=== PATIENT | female | born 1985 | race Caucasian/White ===

== ENCOUNTER 2016-04-05 12:51 | Emergency (ER) | payer OTHER ==
[~2016-04-05] VITALS: Ht 157.5 cm; Wt 92.7 kg
[2016-04-05 12:59] VITALS: Ht 157.5 cm; Wt 92.7 kg
[2016-04-05 14:31] LABS: HEMATOCRIT 42.3 % (37-47); MEAN CELL VOLUME 88.7 fL (80-100); MEAN CORPUSCULAR HEMOGLOBIN 31.4 pg (25-34); MEAN CORPUSCULAR HGB CONC 35.5 g/dl (32-36); MEAN PLATELET VOLUME 9.5 fL (7.4-10.4); PLATELET COUNT 289 K/uL (130-400); RED BLOOD COUNT 4.77 M/uL (4.2-5.4); WHITE BLOOD COUNT 10.69 K/uL (4.8-10.8)
[2016-04-05 14:51] LABS: BUN/CREATININE RATIO 14.1 (10-20); CREATININE 0.71 mg/dl (0.60-1.20); POTASSIUM 3.9 mmol/L (3.5-5.1)
--- NOTE | 2016-04-05 16:13 | DIAGNOSTIC IMAGING REPORT ---
PELVIC ULTRASOUND, TRANSABDOMINAL AND TRANSVAGINAL HISTORY: Possible miscarriage. EVALUATE OB-GRINDER SET UP OPERATOR JIG/VAGINAL BLEEDING COMPARISON: None. FINDINGS: The uterus measures 9.5 x 5.7 x 6.6 cm. There is a single intrauterine gestational sac. There is no yolk sac or pole identified at this time. The mean sac diameter is 1.5 cm consistent with a 5 week and 6 day intrauterine gestation. Normal bilateral ovaries demonstrating color flow. No significant pelvic free fluid. Small echogenic focus within the endometrium measuring 2 mm. This is of doubtful clinical significance. No significant subchorionic hematoma identified at this time. IMPRESSION: There is a single intrauterine gestational sac. There is no yolk sac or pole identified at this time. The mean sac diameter is consistent with a 5 week and 6 day intrauterine gestation. The lack of a pole or yolk sac at this time is concerning but not definitive for a possible failed . Therefore, follow-up pelvic ultrasound in 1-2 weeks and beta hCG levels are recommended for further evaluation. Electronically signed by: Win Choi M.D. 04/05/2016 4:11 PM Dictated Date/Time: 04/05/2016 3:05 PM
--- NOTE | 2016-04-05 16:13 | DIAGNOSTIC IMAGING REPORT ---
PELVIC ULTRASOUND, TRANSABDOMINAL AND TRANSVAGINAL HISTORY: Possible miscarriage. EVALUATE OB-PLANT MACHINIST/VAGINAL BLEEDING COMPARISON: None. FINDINGS: The uterus measures 9.5 x 5.7 x 6.6 cm. There is a single intrauterine gestational sac. There is no yolk sac or pole identified at this time. The mean sac diameter is 1.5 cm consistent with a 5 week and 6 day intrauterine gestation. Normal bilateral ovaries demonstrating color flow. No significant pelvic free fluid. Small echogenic focus within the endometrium measuring 2 mm. This is of doubtful clinical significance. No significant subchorionic hematoma identified at this time. IMPRESSION: There is a single intrauterine gestational sac. There is no yolk sac or pole identified at this time. The mean sac diameter is consistent with a 5 week and 6 day intrauterine gestation. The lack of a pole or yolk sac at this time is concerning but not definitive for a possible failed . Therefore, follow-up pelvic ultrasound in 1-2 weeks and beta hCG levels are recommended for further evaluation. Electronically signed by: Win Choi M.D. 04/05/2016 4:11 PM Dictated Date/Time: 04/05/2016 3:05 PM
--- NOTE | 2016-04-05 17:02 | EMERGENCY ROOM VISIT NOTE ---
History Report prepared by Dennis: Rashaad Meyers Under the Supervision of: Dr. Gilson Galvez D.O. First contact with patient: 13:42 Chief Complaint: OTHER COMPLAINT Stated Complaint: MISCARRIAGE WITH RH FACTOR History of Present Illness The patient is a 30 year old female who presents to the Emergency Room after having a miscarriage yesterday. The patient is Rh factor negative and wants a rho-mariah shot. She was supposed to have an appointment with [facility] but they recommended she present to the ED faster because she would get the results quicker than she would in the clinic. The patient was 7 weeks along. The patient didn't take a home test since they were following a natural schedule. She notes her is Rh positive. She complains of some vaginal bleeding today and cramping. The vaginal bleeding was heavier yesterday than it has been today. Source of History: patient Onset: yesterday Position: other (global) Note: Other associated symptoms: vaginal bleeding, cramping Review of Systems See HPI for pertinent positives & negatives. A total of 10 systems reviewed and were otherwise negative. Past Medical & Surgical Surgical Problems: (1) Lower extremity surgery planned Family History FH: diabetes mellitus FH: heart disease FH: hypertension FH: kidney disease Social History Smoking Status: Never Smoker Alcohol Use: none Marital Status: Housing Status: lives with significant other Occupation Status: employed Current/Historical Medications Miscellaneous Medications None (Patient States No Home Meds) Allergies Coded Allergies: Morphine (Verified Adverse Reaction, Unknown, NAUSEA, 05/23/09) No Known Allergies (Verified , 12/13/03) Physical Exam Vital Signs Date Time Temp Pulse Resp B/P Pulse Ox O2 Delivery O2 Flow Rate FiO2 04/05/16 15:30 82 18 113/82 98 Room Air 04/05/16 14:28 87 18 129/87 97 04/05/16 12:59 36.7 99 18 158/94 99 Room Air Physical Exam CONSTITUTIONAL/VITAL SIGNS: Reviewed / noted above. GENERAL: Non-toxic in appearance. INTEGUMENTARY: Warm, dry, and [place]. HEAD: Normocephalic. EYES: without scleral icterus or trauma. ENT/OROPHARYNX: clear and moist. LYMPHADENOPATHY/NECK: Is supple without lymphadenopathy or meningismus. RESPIRATORY: Lungs clear and equal. CARDIOVASCULAR: Regular rate and rhythm. GI/ABDOMEN: Soft and nontender. No organomegaly or pulsatile mass. No rebound or guarding. Normal bowel sounds. EXTREMITIES: Warm and well perfused. BACK: No CVA tenderness. NEUROLOGICAL: Intact without focal deficits. PSYCHIATRIC: normal affect. MUSCULOSKELETAL: Normally developed with good muscle tone. Medical Decision & Procedures ER Provider Diagnostic Interpretation: US results as stated below per my review and radiologist interpretation: PELVIC ULTRASOUND, TRANSABDOMINAL AND TRANSVAGINAL HISTORY: Possible miscarriage. EVALUATE OB-RUG DYER HELPER/VAGINAL BLEEDING COMPARISON: None. FINDINGS: The uterus measures 9.5 x 5.7 x 6.6 cm. There is a single intrauterine gestational sac. There is no yolk sac or pole identified at this time. The mean sac diameter is 1.5 cm consistent with a 5 week and 6 day intrauterine gestation. Normal bilateral ovaries demonstrating color flow. No significant pelvic free fluid. Small echogenic focus within the endometrium measuring 2 mm. This is of doubtful clinical significance. No significant subchorionic hematoma identified at this time. IMPRESSION: There is a single intrauterine gestational sac. There is no yolk sac or pole identified at this time. The mean sac diameter is consistent with a 5 week and 6 day intrauterine gestation. The lack of a pole or yolk sac at this time is concerning but not definitive for a possible failed . Therefore, follow-up pelvic ultrasound in 1-2 weeks and beta hCG levels are recommended for further evaluation. Electronically signed by: Win Choi M.D. 04/05/2016 4:11 PM Dictated Date/Time: 04/05/2016 3:05 PM PELVIC ULTRASOUND, TRANSABDOMINAL AND TRANSVAGINAL HISTORY: Possible miscarriage. EVALUATE OB-RUG DYER HELPER/VAGINAL BLEEDING COMPARISON: None. FINDINGS: The uterus measures 9.5 x 5.7 x 6.6 cm. There is a single intrauterine gestational sac. There is no yolk sac or pole identified at this time. The mean sac diameter is 1.5 cm consistent with a 5 week and 6 day intrauterine gestation. Normal bilateral ovaries demonstrating color flow. No significant pelvic free fluid. Small echogenic focus within the endometrium measuring 2 mm. This is of doubtful clinical significance. No significant subchorionic hematoma identified at this time. IMPRESSION: There is a single intrauterine gestational sac. There is no yolk sac or pole identified at this time. The mean sac diameter is consistent with a 5 week and 6 day intrauterine gestation. The lack of a pole or yolk sac at this time is concerning but not definitive for a possible failed . Therefore, follow-up pelvic ultrasound in 1-2 weeks and beta hCG levels are recommended for further evaluation. Electronically signed by: Win Choi M.D. 04/05/2016 4:11 PM Dictated Date/Time: 04/05/2016 3:05 PM Laboratory Results 04/05/16 14:20 04/05/16 14:20 Test 04/05/16 14:18 04/05/16 14:20 Urine Test POS (NEG) Red Blood Count 4.77 M/uL (4.2-5.4) Mean Corpuscular Volume 88.7 fL (80-100) Mean Corpuscular Hemoglobin 31.4 pg (25-34) Mean Corpuscular Hemoglobin Concent 35.5 g/dl (32-36) RDW Standard Deviation 43.1 fL (36.4-46.3) RDW Coefficient of Variation 13.2 % (11.5-14.5) Mean Platelet Volume 9.5 fL (7.4-10.4) Anion Gap 11.0 mmol/L (3-11) Est Creatinine Clear Calc Drug Dose 121.7 ml/min Estimated GFR () 131.5 Estimated GFR (Non- 113.5 BUN/Creatinine Ratio 14.1 (10-20) Calcium Level 9.0 mg/dl (8.5-10.1) Human Chorionic Gonadotropin, Quant 3505 mIU/mL Laboratory results as stated above per my review. ED Course 1345: Previous medical records were reviewed. The patient was evaluated in room C6. A complete history and physical examination was performed. 1510: At this time, I discussed the patient's case with Dr. Choi - Radiology [facility] and he asked for a different view on the ultrasound. 1705: On reevaluation, the patient is resting comfortably. I discussed the results and findings with the patient. She verbalized agreement of the treatment plan. The patient was discharged home. Medical Decision Differential diagnosis: Etiologies such as ectopic , dysfunction uterine bleeding, bleeding dyscrasia, trauma, infection, as well as others were entertained. This a 30-year-old female who presents to the ED with a chief complaint of a possible miscarriage. The patient reports that she has approximate 7 weeks . She has not tested herself but she has missed her last 2 periods. The patient called her scanning manager and was told to come here for evaluation. She is a with 1 living child. She reports some menstrual type cramps but no flank or unilateral abdominal or pelvic pain. She denies any other symptoms. CBC is normal. HCG is 3505. Complete metabolic panel was normal. Pelvic ultrasound reveals a single intrauterine gestational sac without pole. This is concerning for possible failed . Follow-up ultrasound and hCG repeat was recommended. Blood type is A-. The patient is given rho-gram. OB follow-up recommended. Consults Time Called: 1505 Consulting Physician: Dr. Choi - Radiaology [facility] Returned Call: 1510 At this time, I discussed the patient's case with Dr. Choi and he asked for a different view on the ultrasound. Impression Primary Impression: Threatened miscarriage in early Scribe Attestation The scribe's documentation has been prepared under my direction and personally reviewed by me in its entirety. I confirm that the note above accurately reflects all work, treatment, procedures, and medical decision making performed by me. Departure Information Dispostion Home / Self-Care Referrals Eli Yen DO (PCP) Forms HOME CARE DOCUMENTATION FORM, IMPORTANT VISIT INFORMATION, WORK / SCHOOL INSTRUCTIONS Patient Instructions My [facility] Additional Instructions Your ultrasound shows an intrauterine Chest asternal sac without pole. This is suggestive of a failed . Repeat pelvic ultrasound recommended in 1-2 weeks. Repeat hCG levels also recommended. Talk to your scanning manager tomorrow for further evaluation and care.
[2016-04-05 18:13] VITALS: BP 140/97; PULSE 80; TEMP 36.5; O2SAT 98
== END 2016-04-05 18:28 | disposition home or self-care (01) ==
LOC: C.EDB 12:53 → C.EDC 18:28
DX: O20.0 Threatened abortion (principal); Z3A.01 Less than 8 weeks gestation of pregnancy

== ENCOUNTER → 2016-04-19 | Outpatient (CLI) | payer OTHER ==
[2016-04-19 12:32] LABS: CHOLESTEROL/HDL RATIO 3.3
== END | disposition home or self-care (01) ==
LOC: C.LAB1850 10:45
PROVIDERS: ATTEND Family Medicine
DX: Z82.49 Family history of ischemic heart disease and other diseases of the circulatory system (principal); Z83.3 Family history of diabetes mellitus; Z00.00 Encounter for general adult medical examination without abnormal findings; Z87.59 Personal history of other complications of pregnancy, childbirth and the puerperium; Z68.34 Body mass index [BMI] 34.0-34.9, adult

== ENCOUNTER → 2016-06-09 | Outpatient (CLI) | payer OTHER ==
[2016-06-09 11:50] LABS: URINE APPEARANCE TURBID (CLEAR); URINE BILIRUBIN NEG (NEG); URINE COLOR YELLOW; URINE EPITHELIAL CELL AUTO >30 /lpf (0-5); URINE NITRITE NEG (NEG); URINE SPECIFIC GRAVITY 1.021 (1.000-1.030); UROBILINOGEN NEG (NEG)
[2016-06-09 11:59] LABS: MANUAL MICROSCOPIC REQUIRED? NO; REVIEW REQ? NO
== END | disposition home or self-care (01) ==
LOC: C.LABSPEC 11:09
PROVIDERS: ATTEND Obstetrics & Gynecology
DX: O09.299 Supervision of pregnancy with other poor reproductive or obstetric history, unspecified trimester (principal)

== ENCOUNTER → 2016-06-15 | Outpatient (CLI) | payer OTHER ==
[~2016-06-15] MED LIST: PRENTAB26 PO
[2016-06-15 12:02] LABS: BASO % 0.2 %; BASO ABS # 0.02 K/uL (0-0.2); COMPLETE YES; EOS % 0.5 %; HEMATOCRIT 41.4 % (37-47); IG% 0.1 %; LYMPH % 21.4 %; LYMPH ABS # 1.78 K/uL (1.2-3.4); MEAN CELL VOLUME 85.7 fL (80-100); MEAN CORPUSCULAR HEMOGLOBIN 30.4 pg (25-34); MEAN CORPUSCULAR HGB CONC 35.5 g/dl (32-36); MEAN PLATELET VOLUME 9.8 fL (7.4-10.4); MONO % 7.2 %; NEUT % 70.6 %; PLATELET COUNT 284 K/uL (130-400); RED BLOOD COUNT 4.83 M/uL (4.2-5.4)
[2016-06-17 01:17] LABS: CHLAMYDIA TRACH RNA*** NOT DETECTED (NOT DETECTED); GC (NEIS GONORRHOEAE)RNA** NOT DETECTED (NOT DETECTED)
== END | disposition home or self-care (01) ==
LOC: C.LAB1850 10:21
PROVIDERS: ATTEND Obstetrics & Gynecology
DX: Z34.90 Encounter for supervision of normal pregnancy, unspecified, unspecified trimester (principal)

== ENCOUNTER → 2016-07-13 | Outpatient (CLI) | payer OTHER | END | disposition home or self-care (01) | LOC: C.LAB1850 09:19 | PROVIDERS: ATTEND Obstetrics & Gynecology | DX: O10.919 Unspecified pre-existing hypertension complicating pregnancy, unspecified trimester (principal); Z29.13 Encounter for prophylactic Rho(D) immune globulin; Z3A.00 Weeks of gestation of pregnancy not specified ==

== ENCOUNTER → 2016-07-20 | Outpatient (CLI) | payer OTHER ==
[2016-07-20 11:41] LABS: PATIENT HEIGHT 162.6 cm
[2016-07-20 14:05] LABS: URINE TOTAL PROTEIN 10.3 mg/dl (0-11.9)
[2016-07-20 14:57] LABS: CREATININE 0.59 mg/dl (0.60-1.20); URIC ACID 3.3 mg/dl (2.6-7.2)
[2016-07-20 16:36] LABS: CREATININE 0.59 mg/dl (0.6-1.2); URINE TOTAL PROTEIN CALC 159.7 mg/24 hr (0-149.1)
== END | disposition home or self-care (01) ==
LOC: C.LAB1850 11:23
PROVIDERS: ATTEND Obstetrics & Gynecology
DX: I10 Essential (primary) hypertension (principal); O10.919 Unspecified pre-existing hypertension complicating pregnancy, unspecified trimester

== ENCOUNTER → 2016-08-17 | Outpatient (CLI) | payer OTHER ==
[2016-08-17 14:21] LABS: GTGD 50 Grams
== END | disposition home or self-care (01) ==
LOC: C.LAB1850 09:43
PROVIDERS: ATTEND Obstetrics & Gynecology
DX: O09.92 Supervision of high risk pregnancy, unspecified, second trimester (principal); Z3A.00 Weeks of gestation of pregnancy not specified

== ENCOUNTER → 2016-11-18 | Outpatient (CLI) | payer OTHER ==
[2016-11-18 11:44] LABS: URINE APPEARANCE CLEAR (CLEAR); URINE BILIRUBIN NEG (NEG); URINE COLOR YELLOW; URINE EPITHELIAL CELL AUTO >30 /lpf (0-5); URINE NITRITE NEG (NEG); URINE SPECIFIC GRAVITY 1.015 (1.000-1.030); UROBILINOGEN NEG (NEG)
[2016-11-18 11:46] LABS: MANUAL MICROSCOPIC REQUIRED? NO; REVIEW REQ? NO
[2016-11-18 12:14] LABS: HEMATOCRIT 38.2 % (37-47)
[2016-11-18 13:50] LABS: GTGD 50 Grams
== END | disposition home or self-care (01) ==
LOC: C.LAB1850 09:53
PROVIDERS: ATTEND Obstetrics & Gynecology
DX: O09.92 Supervision of high risk pregnancy, unspecified, second trimester (principal)

== ENCOUNTER → 2016-11-26 | Outpatient (CLI) | payer OTHER | END | disposition home or self-care (01) | LOC: C.LAB1850 07:25 | PROVIDERS: ATTEND Obstetrics & Gynecology | DX: O28.1 Abnormal biochemical finding on antenatal screening of mother (principal); Z3A.00 Weeks of gestation of pregnancy not specified ==

== ENCOUNTER 2017-01-27 07:30 | Inpatient (IN) | payer OTHER ==
[~2017-01-27] VITALS: Ht 162.6 cm; Wt 106.4 kg
[2017-01-27] MEDS ORDERED: LACTATED RINGER'S 1000ML 1,000 ML IV PRN (08:23)
[2017-01-27] MEDS ORDERED: LACTATED RINGER'S 1000ML 1,000 ML IV SCH (08:23)
[2017-01-27] MEDS ORDERED: LACTATED RINGER'S 1000ML 500 ML IV PRN (08:23)
[2017-01-27] MEDS ORDERED: OXYTOCIN 30 UNITS/500ML NSS IV PRN ×2 (08:30→13:45)
[2017-01-27] MEDS ORDERED: PENICILLIN G POTASSIUM IV 3 MU in DEXTROSE 5% 100ML 100 ML IV PRN (08:30)
[2017-01-27 08:50] LABS: HEMATOCRIT 37.7 % (37-47); MEAN CELL VOLUME 87.9 fL (80-100); MEAN CORPUSCULAR HEMOGLOBIN 30.1 pg (25-34); MEAN CORPUSCULAR HGB CONC 34.2 g/dl (32-36); MEAN PLATELET VOLUME 9.7 fL (7.4-10.4); PLATELET COUNT 283 K/uL (130-400); RED BLOOD COUNT 4.29 M/uL (4.2-5.4); WHITE BLOOD COUNT 9.73 K/uL (4.8-10.8)
[2017-01-27] MEDS ORDERED: PENICILLIN G POTASSIUM IV 6 MU in DEXTROSE 5% 250ML 250 ML IV ONE (09:00)
[2017-01-27 09:07] LABS: ALT/SGPT 20 U/L (12-78); BLOOD UREA NITROGEN 9 mg/dl (7-18); BUN/CREATININE RATIO 17.8 (10-20); CALCIUM 8.9 mg/dl (8.5-10.1); CARBON DIOXIDE 21 mmol/L (21-32); CHLORIDE 108 mmol/L (98-107); CREATININE 0.51 mg/dl (0.60-1.20); GLUCOSE 73 mg/dl (70-99); SODIUM 139 mmol/L (136-145)
[2017-01-27 09:10] LABS: ALB/GLOB RATIO 0.6 (0.9-2); ALKALINE PHOSPHATASE 139 U/L (45-117); AST/SGOT 17 U/L (15-37)
[2017-01-27 09:35] VITALS: Ht 162.6 cm; Wt 106.4 kg
[2017-01-27] MEDS ORDERED: PRENTAB26 PO (09:41)
[2017-01-27] MEDS ORDERED: LANOLIN OINT EXT PRN ×2 (13:45)
[2017-01-27] MEDS ORDERED: SUPERCREAM 0.870 % 15GM JAR EXT PRN (13:45)
[2017-01-27] MEDS ORDERED: OXYCODONE/ACETAMINOPHEN 5-325 TAB PO PRN (13:45)
[2017-01-27] MEDS ORDERED: ACETAMINOPHEN 325 MG TAB PO PRN (13:45)
[2017-01-27] MEDS ORDERED: DIPHTHERIA/TETANUS/PERTUSSIS 0.5 ML SYR/VIAL IM. ONE (13:45)
[2017-01-27] MEDS ORDERED: BENZOCAINE 20% AER SPR 82.5 GM CAN EXT PRN (13:45)
[2017-01-27] MEDS ORDERED: HYDROCORTISONE ACETATE 25 MG SUPP PR PRN (13:45)
--- NOTE | 2017-01-27 14:15 | DELIVERY SUMMARY ---
DATE OF OPERATION: 01/27/2017 DATE OF DELIVERY: 01/27/2017 PREOPERATIVE DIAGNOSES: 1. Intrauterine at 39-0/7 weeks. 2. Chronic hypertension. POSTOPERATIVE DIAGNOSES: 1. Intrauterine at 39-0/7 weeks. 2. Chronic hypertension. PROCEDURES: 1. Pitocin induction. 2. Rupture of forebag. 3. Normal spontaneous vaginal delivery. 4. Second degree perineal laceration with repair. SURGEON: Dr. Nolasco. ANESTHESIA: Local infiltration of lidocaine to the perineum. ESTIMATED BLOOD LOSS: 400 mL. PROCEDURE: The patient presented to labor and delivery for induction for chronic hypertension and favorable cervix. She was found to be 4, 75%, -2. She underwent Pitocin augmentation and then eventually underwent SROM for clear fluid. She was GBS positive and was treated with penicillin. She progressed to the point where she was feeling pushy. She was checked and found to be 9/0. There was a forebag that was broken. The patient then pushed to deliver a viable male infant in URIEL presentation. There was no nuchal cord. A mild shoulder dystocia was encountered that was resolved with placing the bed flat, Brock and suprapubic pressure. The shoulders were then delivered without undue traction. The rest of the baby was then delivered without difficulty. There was a cry. The infant was placed on the maternal abdomen for drying and attention where the cord was clamped and cut. Cord blood and segment were obtained. The placenta was delivered spontaneous intact with a 3-vessel cord. Cervix, sulci and rectum were examined and found to intact. A second degree perineal laceration was infiltrated with local lidocaine and repaired with 3-0 Vicryl. The vagina felt normal. I was unable to visualize the cervix secondary to the patient's discomfort. Rectal exam was negative. Hemostasis was obtained with dilute Pitocin and fundal massage. Placenta had been delivered spontaneously and intact with a 3-vessel cord. Apgars and weight pending. Mother and baby doing well at the end of the delivery. I attest to the content of the Intraoperative Record and any orders documented therein. Any exception s are noted below.
[2017-01-27] MEDS: IBUPROFEN 600 MG TAB PO PRN ×2 (14:35→19:09)
[2017-01-27 16:15] VITALS: BP 150/83; PULSE 102; TEMP 37.1
[2017-01-27] MEDS: DOCUSATE SODIUM 100 MG CAP PO SCH (19:09)
[2017-01-27 19:25] VITALS: BP 136/80; PULSE 101; TEMP 36.9
[2017-01-27 23:15] VITALS: BP 127/78; PULSE 80; TEMP 36.7
[2017-01-28 04:40] VITALS: BP 131/82; PULSE 80; TEMP 36.8
[2017-01-28] MEDS: IBUPROFEN 600 MG TAB PO PRN ×3 (04:53→16:37)
--- NOTE | 2017-01-28 06:58 | OB/GYN Progress Note ---
CAMP ASSISTANT Progress Note Date of Service Jan 28, 2017. Subjective conversation w/ patient, physical exam, chart review, lab review Ambulation: ambulating normally Voiding: no voiding problems Passing Gas: Yes Diet Tolerance: Regular Diet Lochia: Moderate Feeding Type: Breast Feeding Pain: mild pain Review of Systems Constitutional: No fever, No chills Respiratory: No shortness of breath Cardiac: No chest pain Abdomen: No nausea, No vomiting Female : No dysuria Objective Vital Signs Date Time Temp Pulse Resp B/P (MAP) Pulse Ox O2 Delivery O2 Flow Rate FiO2 01/28/17 04:40 36.8 80 18 131/82 (98) Room Air 01/27/17 23:15 36.7 80 18 127/78 (94) Room Air 01/27/17 23:15 Room Air 01/27/17 19:25 36.9 101 18 136/80 (98) Room Air 01/27/17 16:15 Room Air 01/27/17 16:15 37.1 102 18 150/83 (105) Room Air Physical Exam General Appearance: WELL-APPEARING Respiratory/Chest: lungs clear, normal breath sounds Cardiovascular: regular rate, rhythm Abdomen: normal bowel sounds, non tender, soft Fundus: Firm, Relation to Umbilicus (3 FB below) Extremities: non-tender, + pedal edema (trace ) Laboratory Results Last 24 Hours Test 01/27/17 08:36 01/28/17 06:47 White Blood Count 9.73 K/uL Red Blood Count 4.29 M/uL Hemoglobin 12.9 g/dL Hematocrit 37.7 % Mean Corpuscular Volume 87.9 fL Mean Corpuscular Hemoglobin 30.1 pg Mean Corpuscular Hemoglobin Concent 34.2 g/dl RDW Standard Deviation 43.5 fL RDW Coefficient of Variation 13.7 % Platelet Count 283 K/uL Mean Platelet Volume 9.7 fL Sodium Level 139 mmol/L Potassium Level 4.0 mmol/L Chloride Level 108 mmol/L Carbon Dioxide Level 21 mmol/L Anion Gap 10.0 mmol/L Blood Urea Nitrogen 9 mg/dl Creatinine 0.51 mg/dl Estimated GFR () 147.5 Estimated GFR (Non- 127.2 BUN/Creatinine Ratio 17.8 Random Glucose 73 mg/dl Calcium Level 8.9 mg/dl Total Bilirubin 0.4 mg/dl Aspartate Amino Transf (AST/SGOT) 17 U/L Alanine Aminotransferase (ALT/SGPT) 20 U/L Alkaline Phosphatase 139 U/L Total Protein 6.4 gm/dl Albumin 2.5 gm/dl Globulin 3.9 gm/dl Albumin/Globulin Ratio 0.6 Assessment and Plan Day Number: 1 Continue Routine Care: A/P: This is a 31 y/o female, , s/p induced [normal vaginal delivery] day 1. She is ambulating and clinically stable. Hx of chronic HTN but BP wnl since delivery. Plan: - Vitals signs are reviewed and WNL (Tmax 37.1) - Last Hgb is 11.8 - Blood type A- (baby also A-) GBS neg, Rubella Immune - Routine care - Encourage ambulation, monitor and control pain with medication as needed, continue with regular diet as tolerated and monitor lochia - Stool softeners and sitz bath recommended - Encourage breast feeding and educate about breast feeding Resident Physician Supervision Note: I interviewed and examined the patient. Discussed with Dr. Thibodeaux and agree with findings and plan as documented in the note. Any exceptions or clarifications are listed here: Doing well. Pressures ok, continue to monitor. No s/s pet. Documented By: Reanna Nolasco Resident Involvement: Resident Care Provided Care Provided: OB Delivery
[2017-01-28 06:59] LABS: HEMATOCRIT 35.3 % (37-47)
--- NOTE | 2017-01-28 07:06 | Discharge Instructions ---
Discharge Instructions Date of Service Jan 28, 2017. Admission Reason for Admission: Induction Discharge Discharge Diagnosis / Problem: after vaginal delivery Discharge Goals Goal(s): Routine recovery after delivery Activity Recommendations Activity Limitations: per Instructions/Follow-up section . Instructions / Follow-Up Instructions / Follow-Up ACTIVITY RECOMMENDATIONS: * Gradual return to full activity over the next 2-3 weeks. * No lifting - nothing heavier than baby over the next 2-3 weeks. * Do not engage in vigorous exercise, sexual activity or sports until cleared by your physician. * Do not drive or operate any motorized equipment until cleared by your physician. * You may shower/bathe daily. MEDICATIONS: For discomfort or pain, you may use Acetaminophen (Tylenol), Ibuprofen (Advil), or Naproxen (Aleve) following the package directions. For constipation you may use Colace following the package directions. BREAST CARE: If you are not breast feeding: * Wear a supportive bra 24 hours a day for one to two weeks. * Avoid stimulating your breasts and nipples as much as possible during the first few weeks after delivery. * When taking a shower, have the warm water hit your back, not breasts. * When your breasts feel full, apply ice packs. Usually three to four times a day helps ease the discomfort. * Take a mild pain medication (Tylenol / Motrin) when you are uncomfortable. If breast feeding: * Use breast milk to lubricate nipples. Lansinoh cream may be used for sore nipples. You do not need to remove cream prior to breast feeding. If using a different brand of cream, check the label for directions regarding removal of cream prior to nursing. * Wear a supportive bra. * If having problems with breasts or breast feeding, call a review consultant or your health care provider. EPISIOTOMY CARE: After delivery, if you have an episiotomy (stitches), the following steps will ease discomfort and aid healing. * For the first 24 hours after delivery, place ice packs next to your episiotomy to help reduce swelling. * After the first 24 hour-period, sitz baths, either portable or in the tub, are suggested. A shower with a shower arm sprayed over the episiotomy may be comforting. * Lisette care should be done after each voiding and bowel movement. Squirt warm water from a plastic bottle over the perineum (region of the body between the anus and urinary opening) and pat dry. * Use Dermoplast to ease discomfort. Shake container. Uledi directly over the episiotomy. Place a Tucks on a clean sanitary pad next to your episiotomy. SPECIAL CARE INSTRUCTIONS: When you are discharged from the hospital, it is important for you to follow the instructions listed below: * During the first week at home, you should be able to care for yourself and your baby. In addition, the usual light household activities are encouraged. * Limit your activities to the way you feel. Do not try to clean the house or move furniture. Be sensible. * If you actively engage in sports and have done so up until the time of your delivery, you may resume these activities as soon as you feel able. This may take up to one month or even longer. Use good judgment. * Continue to take your vitamins for at least six weeks after the of your baby. * Your diet need not be limited unless you were on a special diet before your delivery. Breast-feeding mothers need around 2500 calories per day and at least 64-80 ounces of fluid per day (8 to 10 glasses). * You should eat foods from the four major food groups. Crash diets or fad diets are to be avoided. Eating lean meats, fresh fruits and vegetables, low-fat dairy products, high fiber foods and a regular exercise program, will help you get back to your pre- weight without putting your health at risk. * Constipation is sometimes a problem after delivery. Take a mild laxative as needed. If breast feeding, Milk of Magnesia is acceptable to use. You may use a suppository or Fleets enema if no episiotomy. * A daily shower or tub bath is suggested. Be sure to thoroughly and gently dry the perineum. * A bloody vaginal discharge will usually continue until around four weeks post . A small amount of bleeding may continue for as long as six weeks. Vaginal discharge changes from the bright red bleeding after delivery to pink then brownish and finally yellowish-pink before becoming white and disappearing. * Bleeding may increase with activity. Your first period may come in 4-8 weeks. If you are breast feeding, your period may be delayed even longer. * [place] (sex) can begin whenever both you and your partner feel comfortable and do not have any form of genital infection. It is recommended that you wait at least six weeks for internal and external healing to occur. If you have questions, please talk to your health care practitioner. A condom should be used to prevent infection and . * Foreplay, gentle intercourse and lubrication is very important the first several times to prevent pain. A water-based lubricant such as K-Y jelly or Astroglide may be used. * If you have RH negative blood and your baby is RH positive, you will receive RHOGAM by injection prior to discharge. The nurse will give you a card to keep with you that has the date and place that you received RHOGAM after delivery. * During your care, you had a Rubella screen done to check for the presence of rubella antibodies in your blood. If your test was negative, you will receive a Rubella vaccine prior to discharge. This vaccine may cause a fever, soreness at the injection site and flu-like symptoms. If these symptoms persist, notify your health care practitioner. is not advised for one month after a Rubella vaccine. * Verbalizes understanding of car seat law as reviewed with patient nursing. * Car Seat hand-out given and reviewed with patient by nursing. * Shaken baby information reviewed with patient by nursing. Call you doctor if: * Heavy bleeding (saturating several pads an hour) or passing clots the size of your fist. * A fever >101 degrees F (38.3 degrees C) on two occasions four hours apart and /or chills. * Unusual pain in the pelvic or vaginal areas. * "Baby Blues" lasting longer than two weeks. If you have any questions or concerns, call your health care practitioner at . FOLLOW UP VISIT: * Please call the office at to schedule a 6 week examination. It is important you keep this appointment. It is important for you to make arrangements for either yearly or twice yearly check-ups thereafter. Current Hospital Diet Patient's current hospital diet: Regular OB Diet Discharge Diet Recommended Diet: Regular Diet Pending Studies Studies pending at discharge: no Medical Emergencies . Who to Call and When: Medical Emergencies: If at any time you feel your situation is an emergency, please call 911 immediately. . Non-Emergent Contact Non-Emergency issues call your: Primary Care Provider, Special Needs Caregiver Call Non-Emergent contact if: you have a fever, temperature is above 101, your pain is not controlled . . "Provider Documentation" section prepared by Jina Thibodeaux. . VTE Core Measure Inpt VTE Proph given/why not?: Treatment not indicated
[2017-01-28 07:29] VITALS: BP 139/78; PULSE 78; TEMP 36.7; O2SAT 98
[2017-01-28] MEDS ORDERED: PRENATAL VITAMIN TAB PO SCH (08:00)
[2017-01-28] MEDS: DOCUSATE SODIUM 100 MG CAP PO SCH (08:11)
[2017-01-28 12:16] VITALS: BP 136/88; TEMP 36.6
[2017-01-28 16:20] VITALS: BP 133/81; PULSE 93; TEMP 36.8
[2017-01-28 18:20] VITALS: BP_DIAS 81; PULSE 93; TEMP 36.8
== END 2017-01-28 18:25 | disposition home or self-care (01) | DRG 774 ==
LOC: C.LD 07:30 → C.OBG 17:00
PROVIDERS: ADMIT Obstetrics & Gynecology; ATTEND Obstetrics & Gynecology
PROC: 10E0XZZ Delivery of Products of Conception, External Approach (ICD-10-PCS; principal; 2017-01-27)
PROC: 0KQM0ZZ Repair Perineum Muscle, Open Approach (ICD-10-PCS; principal; 2017-01-27)
DX: O10.02 Pre-existing essential hypertension complicating childbirth (principal); O70.1 Second degree perineal laceration during delivery; O99.824 Streptococcus B carrier state complicating childbirth; O66.0 Obstructed labor due to shoulder dystocia; Z37.0 Single live birth; Z3A.39 39 weeks gestation of pregnancy

== ENCOUNTER → 2017-03-17 | Outpatient (CLI) | payer OTHER | END | disposition home or self-care (01) | LOC: C.PAPS 10:36 | PROVIDERS: ATTEND Obstetrics & Gynecology | DX: Z12.4 Encounter for screening for malignant neoplasm of cervix (principal); Z11.51 Encounter for screening for human papillomavirus (HPV) ==

== ENCOUNTER 2017-10-27 11:15 | Emergency (ER) | payer OTHER ==
[~2017-10-27] VITALS: Ht 162.6 cm; Wt 97.6 kg
[2017-10-27 11:20] VITALS: TEMP 36.6; Ht 162.6 cm; Wt 97.6 kg
[2017-10-27 11:35] VITALS: O2SAT 96
[2017-10-27 11:55] LABS: BASO % 0.5 %; BASO ABS # 0.03 K/uL (0-0.2); EOS % 0.8 %; EOS ABS # 0.05 K/uL (0-0.5); HEMATOCRIT 43.9 % (37-47); HEMOGLOBIN 14.9 g/dL (12.0-16.0); IG# 0.01 K/uL (0.00-0.02); LYMPH % 31.2 %; LYMPH ABS # 1.84 K/uL (1.2-3.4); MEAN CELL VOLUME 88.5 fL (80-100); MEAN CORPUSCULAR HGB CONC 33.9 g/dl (32-36); MEAN PLATELET VOLUME 9.6 fL (7.4-10.4); MONO % 6.5 %; MONO ABS # 0.38 K/uL (0.11-0.59); NEUT % 60.8 %; NEUT ABS # 3.58 K/uL (1.4-6.5); PLATELET COUNT 293 K/uL (130-400); RED CELL DISTRIBUTION WIDTH CV 12.6 % (11.5-14.5); RED CELL DISTRIBUTION WIDTH SD 40.3 fL (36.4-46.3); WHITE BLOOD COUNT 5.89 K/uL (4.8-10.8)
[2017-10-27 12:03] LABS: PTT PATIENT 28.5 SECONDS (21.0-31.0)
[2017-10-27 12:12] LABS: ALBUMIN 3.8 gm/dl (3.4-5.0); CALCIUM 8.9 mg/dl (8.5-10.1); CKMB 1.8 ng/ml (0.5-3.6); CREATININE 0.79 mg/dl (0.60-1.20); POTASSIUM 4.4 mmol/L (3.5-5.1)
[2017-10-27] MEDS ORDERED: LEVO112T4 PO (12:14)
--- NOTE | 2017-10-27 12:17 | DIAGNOSTIC IMAGING REPORT ---
CHEST 2 VIEWS ROUTINE CLINICAL HISTORY: 32 years-old Female presenting with chest pain, left-sided chest pain, headache. TECHNIQUE: PA and lateral views of the chest were obtained. COMPARISON: None. FINDINGS: Cardiomediastinal silhouette normal. Lungs and pleural spaces clear. Osseous structures normal. Upper abdomen normal. IMPRESSION: 1. No acute cardiopulmonary disease. Electronically signed by: Alex Curiel M.D. 10/27/2017 12:16 PM Dictated Date/Time: 10/27/2017 12:15 PM
[2017-10-27] MEDS ORDERED: ONDANSETRON 4MG OD TAB PO STA (12:49)
[2017-10-27] MEDS ORDERED: ONDA4TAB10 SL (12:57)
--- NOTE | 2017-10-27 12:59 | EMERGENCY ROOM VISIT NOTE ---
History First contact with patient: 11:23 Chief Complaint: CHEST PAIN Stated Complaint: LEST CHEST PAIN,NAUSEA,HEADACHE Nursing Triage Summary: pt states left sided chest pain with diaphoresis and dizziness starting yesterday afternoon, pt states pain left lateral chest radiating to left shoulder. History of Present Illness The patient is a 32 year old female who presents to the Emergency Room with complaints of left-sided chest pain which started yesterday. The patient states initially was sharp in nature but now it is more of a throbbing pain. The patient states that does not change with movement of the left shoulder. She points to the anterior aspect of the left chest and up into the shoulder as the area of pain. The patient states that her symptoms started yesterday while she was at high progress days. She states that she felt very nauseous sweaty and dizzy. The patient states that she was recently diagnosed with hypothyroidism and they are currently adjusting her medication. She states that they last adjusted it for weeks ago. The patient states she had a similar episode 2 months ago. This was prior to her being diagnosed with a hypothyroidism. The patient states she is compliant with her medications. The patient denies any associated shortness of breath. The patient denies any recent illness. She was outside in the heat yesterday at the onset of her symptoms. Patient does admit to history of hypertension but denies any personal history of cardiac disease. Her father had a quadruple bypass in his 50s. The patient is a non-smoker. She does admit to high caffeine intake. The patient is not on any control. Review of Systems 10 system review was performed and was negative unless stated otherwise history of present illness. Past Medical/Surgical History Medical Problems: (1) Gestational hypertension w/o significant proteinuria in 3rd trimester (2) with 37 or more completed weeks gestation Surgical Problems: (1) Lower extremity surgery planned Hypothyroidism Family History FH: diabetes mellitus FH: heart disease FH: hypertension FH: kidney disease Social History Smoking Status: Never Smoker Alcohol Use: none Marital Status: Housing Status: lives with significant other Occupation Status: employed Current/Historical Medications Scheduled Levothyroxine Sodium (Levothyroxine Sodium), 112 MCG PO DAILY Physical Exam Vital Signs Date Time Temp Pulse Resp B/P (MAP) Pulse Ox O2 Delivery O2 Flow Rate FiO2 10/27/17 12:01 132/87 10/27/17 11:47 83 10/27/17 11:45 80 19 97 10/27/17 11:35 96 Room Air 10/27/17 11:35 96 Room Air 10/27/17 11:31 136/107 10/27/17 11:20 36.6 91 18 161/98 100 Room Air Physical Exam GENERAL: 32-year-old white female appears in no acute distress. MENTAL Status: Alert and oriented 3. EYES: PERRLA. EOMs intact. EARS: Canals clear. TMs without fluid level noted. NECK: Supple, no lymphadenopathy noted. No carotid bruits noted. Thyroid without enlargement or nodularity. LUNGS: Clear auscultation without wheezes rales or rhonchi. CARDIAC: Regular rate and rhythm with occasional ectopy. Pulses is full and equal throughout. ABDOMEN: Positive bowel sounds all 4 quadrants. Soft, nontender to palpation without organomegaly or masses. NEURO:Cranial nerves two through 12 intact. Cerebellar function intact with [id number]. Fine motor intact with alternating finger motions. Medical Decision & Procedures ER Provider Diagnostic Interpretation: CHEST 2 VIEWS ROUTINE CLINICAL HISTORY: 32 years-old Female presenting with chest pain, left-sided chest pain, headache. TECHNIQUE: PA and lateral views of the chest were obtained. COMPARISON: None. FINDINGS: Cardiomediastinal silhouette normal. Lungs and pleural spaces clear. Osseous structures normal. Upper abdomen normal. IMPRESSION: 1. No acute cardiopulmonary disease. Electronically signed by: Alex Curiel M.D. Laboratory Results 10/27/17 11:32 Red Blood Count 4.96, Mean Corpuscular Volume 88.5, Mean Corpuscular Hemoglobin 30.0, Mean Corpuscular Hemoglobin Concent 33.9, Mean Platelet Volume 9.6, Neutrophils (%) (Auto) 60.8, Lymphocytes (%) (Auto) 31.2, Monocytes (%) (Auto) 6.5, Eosinophils (%) (Auto) 0.8, Basophils (%) (Auto) 0.5, Neutrophils # (Auto) 3.58, Lymphocytes # (Auto) 1.84, Monocytes # (Auto) 0.38, Eosinophils # (Auto) 0.05, Basophils # (Auto) 0.03 10/27/17 11:32 Test 10/27/17 11:32 10/27/17 12:01 White Blood Count 5.89 K/uL (4.8-10.8) Red Blood Count 4.96 M/uL (4.2-5.4) Hemoglobin 14.9 g/dL (12.0-16.0) Hematocrit 43.9 % (37-47) Mean Corpuscular Volume 88.5 fL (80-100) Mean Corpuscular Hemoglobin 30.0 pg (25-34) Mean Corpuscular Hemoglobin Concent 33.9 g/dl (32-36) Platelet Count 293 K/uL (130-400) Mean Platelet Volume 9.6 fL (7.4-10.4) Neutrophils (%) (Auto) 60.8 % Lymphocytes (%) (Auto) 31.2 % Monocytes (%) (Auto) 6.5 % Eosinophils (%) (Auto) 0.8 % Basophils (%) (Auto) 0.5 % Neutrophils # (Auto) 3.58 K/uL (1.4-6.5) Lymphocytes # (Auto) 1.84 K/uL (1.2-3.4) Monocytes # (Auto) 0.38 K/uL (0.11-0.59) Eosinophils # (Auto) 0.05 K/uL (0-0.5) Basophils # (Auto) 0.03 K/uL (0-0.2) RDW Standard Deviation 40.3 fL (36.4-46.3) RDW Coefficient of Variation 12.6 % (11.5-14.5) Immature Granulocyte % (Auto) 0.2 % Immature Granulocyte # (Auto) 0.01 K/uL (0.00-0.02) Prothrombin Time 11.0 SECONDS (9.0-12.0) Prothromb Time International Ratio 1.0 (0.9-1.1) Activated Partial Thromboplast Time 28.5 SECONDS (21.0-31.0) Partial Thromboplastin Ratio 1.1 Anion Gap 6.0 mmol/L (3-11) Est Creatinine Clear Calc Drug Dose 114.9 ml/min Estimated GFR () 114.0 Estimated GFR (Non- 98.4 BUN/Creatinine Ratio 17.8 (10-20) Calcium Level 8.9 mg/dl (8.5-10.1) Total Bilirubin 0.6 mg/dl (0.2-1) Direct Bilirubin 0.2 mg/dl (0-0.2) Aspartate Amino Transf (AST/SGOT) 19 U/L (15-37) Alanine Aminotransferase (ALT/SGPT) 22 U/L (12-78) Alkaline Phosphatase 72 U/L (45-117) Total Creatine Kinase 203 U/L (26-192) Creatine Kinase MB 1.8 ng/ml (0.5-3.6) Creatine Kinase MB Ratio 0.9 (0-3.0) Total Protein 8.0 gm/dl (6.4-8.2) Albumin 3.8 gm/dl (3.4-5.0) Lipase 117 U/L (73-393) Thyroid Stimulating Hormone (TSH) 0.821 uIu/ml (0.300-4.500) Free Thyroxine 1.26 ng/dl (0.80-1.60) Bedside D-Dimer 28 ng/mlFEU (0-450) Bedside Troponin I < 0.030 ng/ml (0-0.045) ECG Per My Interpretation Indication: chest pain Rhythm: normal sinus Findings: PVC, no acute ischemic change ED Course The patient was evaluated. IV access was obtained. Patient was placed on a monitor and continuous pulse ox. EKG was ordered interpreted as above without any acute findings . Patient was given Zofran 4 mg ODT for nausea. Normal sinus rhythm with occasional PVCs at a rate of 78. No acute ST changes noted. IV access was obtained. The patient was given 1 L normal saline wide open. CBC and differential, renal profile, coags, CK-MB, LFTs and lipase levels were ordered. TSH and T4 levels were ordered. Odzlp-vs-taef troponin hmmxu-xz-npay d-dimer were ordered. Labs are already reviewed. Jktnj-no-ajtr d-dimer was normal. Troponin was normal. Only abnormal lab was slightly elevated CK but CK -MB ratio was normal. The patient was offered pain medication but declined. X- ray of the chest was ordered interpreted as above without any acute findings. The patient's case was discussed with Dr. Garcia who agree with treatment plan. I discussed all findings with the patient. I also informed the patient that I was having case management set up an appointment with cardiology for further evaluation. The patient was in agreement and was discharged home in stable condition. Medical Decision Differential diagnoses include hyperthyroidism, hypothyroidism, viral illness, chest wall strain, cardiac arrhythmia, acute SD, PE. Due to the patient's family history of early CAD and the patient admitting to be noncompliant with appointments I had the lead case manager set up the appointment with cardiology to ensure a an appointment is made. [facility] [facility] Monitoring [facility] Search Results: patient reviewed within database Medication Reconcilliation Current Medication List: was personally reviewed by me Blood Pressure Screening Patient's blood pressure: Normal blood pressure Impression Primary Impression: Left sided chest pain Additional Impression: Nausea Departure Information Dispostion Home / Self-Care Condition GOOD Prescriptions Ondasetron Odt (ZOFRAN ODT) 4 Mg Tab 4 MG SL Q6H for Nausea, #10 TAB Prov: Elisabeth Sepulveda PA-C 10/27/17 Referrals Eli Yen DO (PCP) Forms Call Back Authorization, HOME CARE DOCUMENTATION FORM, IMPORTANT VISIT INFORMATION Patient Instructions Chest Pain - [facility] Additional Instructions Push fluids. Take Zofran as needed for nausea. Tylenol as needed for headache. If you experience any severe chest pain, shortness of breath, severe headache return to the ER immediately. Keep scheduled appointment with cardiology for further evaluation. Problem Qualifiers
[2017-10-27 13:18] VITALS: BP 135/93; PULSE 74; O2SAT 98
== END 2017-10-27 13:19 | disposition home or self-care (01) ==
LOC: C.EDB 11:17 → C.EDC 13:19
DX: R07.89 Other chest pain (principal); R11.0 Nausea; E03.9 Hypothyroidism, unspecified; Z82.49 Family history of ischemic heart disease and other diseases of the circulatory system

== ENCOUNTER 2020-09-30 07:25 | Inpatient (IN) ==
[2020-09-30] MEDS ORDERED: OXYTOCIN 30 UNITS/500 ML BAG IV PRN (10:29)
[2020-09-30] MEDS ORDERED: LACTATED RINGER'S 1,000 ML IV PRN (10:29)
[2020-09-30] MEDS ORDERED: PENICILLIN G POTASSIUM 6 MU in DEXTROSE 5% 250 ML IV STA (10:29)
[2020-09-30] MEDS ORDERED: miSOPROStoL 50 MCG TAB ONE (10:51)
[2020-09-30] MEDS: miSOPROStoL 50 MCG TAB PO SCH ×4 (10:52→23:06)
[2020-09-30 11:07] LABS: Hematocrit (blood only) 37.2 % (37-47); Hemoglobin 12.8 g/dL (12.0-16.0); Mean Corpuscular Hgb Conc 34.4 g/dL (32-36); Mean Corpuscular Volume 87.3 fL (80-100); Mean Platelet Volume 9.2 fL (7.4-10.4); Platelet Count 329 K/uL (130-400); RDW Coefficient of Variation 13.5 % (11.5-14.5); RDW Standard Deviation 42.5 fL (36.4-46.3); Red Blood Count 4.26 M/uL (4.2-5.4); White Blood Count 8.51 K/uL (4.8-10.8)
--- NOTE | 2020-09-30 11:34 | Obstetrical Progress Note ---
Date of Service September 30, 2020 Assessment & Plan Admission and Anticipated Discharge Date Admission Date: September 30, 2020 Subjective Met Pt and spouse discussed hx of shoulder dystocia with both parents This is my second conversation with pt about this . Once again I have informed and offered her c/sec Pt feels because her gestational age is less than last, and EFW by sono is less than 8 lbs, she can deliver safely vaginally. I have informed pt that although this is likely, there is still the change that the actual wt may be more than that on the sono and that there still could be shoulder dystocia at a much lower wt. I have discussed the [facility] consequences of shoulder dystocia including but not limited to permanent neurological damage and or permanent injury. Pt's spouse made the comment that their son is doing so well and is even ambidextrous , probably because of the dystocia Plan is therefore to proceed with labor induction Results & Data ([facility]) Vital Signs (Past 12 Hours) Vital Signs Temp Pulse Resp BP 09/30/20 10:54 36.6 C 80 18 131/80 09/30/20 07:34 36.8 C 18 09/30/20 07:33 113 H 137/95
[2020-09-30] MEDS ORDERED: miSOPROStoL 50 MCG TAB PO SCH (12:00)
--- NOTE | 2020-09-30 18:31 | Obstetrical Progress Note ---
Date of Service September 30, 2020 Assessment & Plan Admission and Anticipated Discharge Date Admission Date: September 30, 2020 Subjective Pt doing well FHR; CAT1 Ctx; 3-4min VE; /post Received 1 dose Cytotec Plan Cervidil vaginal Results & Data ([facility]) Vital Signs (Past 12 Hours) Vital Signs Temp Pulse Resp BP 09/30/20 15:07 36.7 C 87 18 133/86 09/30/20 10:54 36.6 C 80 18 131/80 09/30/20 07:34 36.8 C 18 09/30/20 07:33 113 H 137/95
--- NOTE | 2020-09-30 18:32 | Obstetrical Progress Note ---
Date of Service September 30, 2020 Assessment & Plan Admission and Anticipated Discharge Date Admission Date: September 30, 2020 Results & Data ([facility]) Vital Signs (Past 12 Hours) Vital Signs Temp Pulse Resp BP 09/30/20 15:07 36.7 C 87 18 133/86 09/30/20 10:54 36.6 C 80 18 131/80 09/30/20 07:34 36.8 C 18 09/30/20 07:33 113 H 137/95
[2020-09-30] MEDS ORDERED: DINOPROSTONE 10 MG INSERT PV ONE (18:33)
--- NOTE | 2020-09-30 19:40 | Obstetrical Progress Note ---
Date of Service September 30, 2020 Assessment & Plan Admission and Anticipated Discharge Date Admission Date: September 30, 2020 Subjective Pt doing well FHR; CAT1 Ctx ; 2-4mins VE; Unchanged Cervidil placed in vagina Results & Data ([facility]) Vital Signs (Past 12 Hours) Vital Signs Temp Pulse Resp BP 09/30/20 19:10 36.7 C 18 09/30/20 19:04 104 H 142/94 H 09/30/20 15:07 36.7 C 87 18 133/86 09/30/20 10:54 36.6 C 80 18 131/80
[2020-09-30] MEDS ORDERED: BUTALBITAL/ACETAMIN/CAFFEINE TAB PO STA (21:37)
[2020-10-01] MEDS: miSOPROStoL 50 MCG TAB PO SCH ×5 (05:28→19:39)
[2020-10-01] MEDS: LEVOTHYROXINE SODIUM 137 MCG TABLET PO SCH (06:01)
--- NOTE | 2020-10-01 07:51 | Labor Progress Brief Note ---
Date of Service October 01, 2020 Subjective Reason For Note: Routine Evaluation and Other Assessment & Plan Admission and Anticipated Discharge Date Admission Date: September 30, 2020 Physical Exam Constitutional: WD/WN, vitals as above Genitourinary: Manual OB Exam: + cervical dilation 1 cm, + cervical effacement 50% and + station high Cervidil removed. Cervix posterior and firm. head ballotable and not engaged. Results & Data ([facility]) Vital Signs (Past 12 Hours) Vital Signs Temp Pulse Resp BP 10/01/20 07:16 36.8 C 10/01/20 07:10 85 138/89 10/01/20 03:52 36.8 C 10/01/20 03:39 83 131/86 09/30/20 22:42 82 142/86 H
[2020-10-01] MEDS: BUTALBITAL/ACETAMIN/CAFFEINE TAB PO PRN ×2 (09:30→21:13)
--- NOTE | 2020-10-01 10:19 | Anesthesiology Consultation ---
Date of Service October 01, 2020 Assessment & Plan (1) Encounter for pre-operative examination: Chart Review Chart Review: Acceptable Risk for Labor Epidural History Height/Weight Height: 5 ft 3 in Weight: 111.584 kg Allergies Allergy/AdvReac Type Severity Reaction Status Date / Time chlorhexidine Allergy Mild RASH Verified 09/30/20 07:36 kiwi Allergy Hives Verified 09/30/20 08:09 morphine AdvReac Unknown NAUSEA Verified 09/30/20 07:36 Medications Home Medications Medication Instructions Recorded Confirmed Last Taken wuzjdikbaq-vdxlbosnvajsu-nfoijhsm 1 cap PO BID 09/30/20 09/30/20 09/30/20 05:30 50 mg-300 mg-40 mg capsule levothyroxine 137 mcg tablet 137 mcg PO DAILY 09/30/20 09/30/20 09/30/20 04:00 (Synthroid) Active Medications Generic Name Dose Route Start Last Admin Trade Name Freq PRN Reason Stop Dose Admin Acetaminophen/Butalbital/Caffeine 1 tab 10/01/20 09:00 10/01/20 09:30 Butalbital/Acetamin/Caffeine Tab PO 10/31/20 08:59 1 tab BID PRN Administration Headache Levothyroxine Sodium 137 mcg 10/01/20 06:30 10/01/20 06:01 Levothyroxine Sodium 137 Mcg Tablet PO 10/31/20 06:29 137 mcg DAILYBB NICOLE Administration Misoprostol 50 mcg 09/30/20 11:00 10/01/20 07:12 Misoprostol 50 Mcg Tab PO 10/30/20 10:59 Not Given Q4H NICOLE Past Medical History Medical History Fracture, ankle Hypothyroid Lower extremity surgery planned Social History Smoking Status: Never smoker Hx Alcohol Use: No Hx Substance Use: No Physical Exam Vital Signs Last Vital Signs Temp 36.8 C 10/01/20 07:16 Pulse 85 10/01/20 07:10 Resp 18 10/01/20 07:16 BP 138/89 10/01/20 07:10 Testing Laboratory Results 09/30/20 10:57
[2020-10-01] MEDS ORDERED: OXYTOCIN 30 UNITS/500 ML BAG IV PRN ×2 (14:16→22:03)
--- NOTE | 2020-10-01 14:16 | Labor Progress Brief Note ---
Date of Service October 01, 2020 Assessment & Plan (1) Elective induction of labor planned: Plan: Will start Oxytocin to augment contractions. EFW 8 lbs Admission and Anticipated Discharge Date Admission Date: September 30, 2020 Physical Exam Genitourinary: Manual OB Exam: + cervical dilation 3 cm and 4 cm, + cervical effacement 70% and + station high Results & Data ([facility]) Vital Signs (Past 12 Hours) Vital Signs Temp Pulse Resp BP 10/01/20 10:52 37.1 C 109 H 22 135/84 10/01/20 07:16 36.8 C 18 10/01/20 07:10 85 138/89 10/01/20 03:52 36.8 C 10/01/20 03:39 83 131/86
[2020-10-01] MEDS: PENICILLIN G POTASSIUM 3 MU in DEXTROSE 5% 100 ML IV PRN ×2 (17:04→21:13)
--- NOTE | 2020-10-01 20:28 | Labor Progress Brief Note ---
Date of Service October 01, 2020 Assessment & Plan Admission and Anticipated Discharge Date Admission Date: September 30, 2020 Physical Exam Genitourinary: Manual OB Exam: + cervical dilation 4 cm, + cervical effacement 70%, + station -2 and + amniotic fluid clear AROM with Amni-hook clear fluid Results & Data ([facility]) Vital Signs (Past 12 Hours) Vital Signs Temp Pulse Resp BP 10/01/20 19:30 37.2 C 18 10/01/20 19:15 89 144/97 H 10/01/20 17:44 100 H 122/74 10/01/20 16:33 103 H 148/90 H 10/01/20 15:35 99 H 138/86 10/01/20 14:35 37.1 C 106 H 20 139/84 10/01/20 10:52 37.1 C 109 H 22 135/84
--- NOTE | 2020-10-01 21:46 | Delivery Summary ---
Vaginal Delivery Summary Date of Service October 01, 2020 Vaginal Delivery Summary Delivery Note live female URIEL over intact perineum with nuchal cord x1 and body cord x1 reduced at time of delivery of head. Apgars 8/9 weight pending. Cord blood obtained followed by spontaneous delivery of intact placenta. No tears. EBL 100 ml. Final sponge and instrument count are correct. Mom and baby stable.
[2020-10-01] MEDS ORDERED: bisacodyL 10 MG SUPP PR PRN (22:03)
[2020-10-01] MEDS ORDERED: HYDROCORTISONE ACETATE 25 MG SUPP PR PRN (22:03)
[2020-10-01] MEDS ORDERED: ACETAMINOPHEN 325 MG TAB PO PRN (22:03)
[2020-10-01] MEDS ORDERED: SUPERCREAM 0.870% 15 GM JAR EXT PRN (22:03)
[2020-10-01] MEDS ORDERED: BENZOCAINE 20% AER SPR 82.5 GM CAN EXT PRN (22:03)
[2020-10-01] MEDS ORDERED: DIPHTHERIA/TETANUS/PERTUSSIS 0.5 ML SYR/VIAL IM ONE (22:03)
[2020-10-01] MEDS: IBUPROFEN 600 MG TAB PO PRN (22:32)
[2020-10-02] MEDS: IBUPROFEN 600 MG TAB PO PRN ×4 (05:07→19:17)
[2020-10-02] MEDS: LEVOTHYROXINE SODIUM 137 MCG TABLET PO SCH (05:07)
[2020-10-02 06:29] LABS: Hematocrit (blood only) 34.5 % (37-47); Hemoglobin 11.5 g/dL (12.0-16.0); Mean Corpuscular Hemoglobin 28.9 pg (25-34); Mean Corpuscular Hgb Conc 33.3 g/dL (32-36); Mean Corpuscular Volume 86.7 fL (80-100); Mean Platelet Volume 9.9 fL (7.4-10.4); Platelet Count 330 K/uL (130-400); RDW Coefficient of Variation 13.3 % (11.5-14.5); RDW Standard Deviation 42.4 fL (36.4-46.3); Red Blood Count 3.98 M/uL (4.2-5.4); White Blood Count 12.79 K/uL (4.8-10.8)
--- NOTE | 2020-10-02 07:44 | Obstetrical Progress Note ---
Date of Service October 02, 2020 Assessment & Plan Admission and Anticipated Discharge Date Admission Date: September 30, 2020 Subjective Patient is seen and examined. She feels well, no complaints. Ambulating without dizziness Voiding without difficulty Tolerating regular diet with out N&V Bleeding is minimal No fever/ chills/ CP/ SOB/ N&V/ Leg pain Breast feeding without problems Vital Signs Height Weight Body Mass Index Blood Pressure Blood Pressure Position Temperature Temperature Source 5 ft 3 in 111.584 kg 43.5 109/73 Semi-fowlers 37.0 C Oral 10/01/20 10:18 10/01/20 10:18 09/30/20 07:56 10/02/20 05:05 10/02/20 05:05 10/02/20 05:05 10/02/20 05:05 Pulse Rate Respiratory Rate Pulse Oximetry 86 16 98 10/02/20 05:05 10/02/20 05:05 10/02/20 05:05 Vital Signs Temp Pulse Pulse Resp BP BP Pulse Ox 10/02/20 05:05 37.0 C 86 16 109/73 98 10/02/20 00:20 36.6 C 107 H 18 111/75 97 10/01/20 23:57 105 H 128/67 10/01/20 23:42 96 H 18 127/62 10/01/20 23:27 99 H 122/62 10/01/20 23:12 104 H 20 142/73 H 10/01/20 22:57 95 H 135/68 10/01/20 22:42 91 H 18 151/80 H 10/01/20 22:27 92 H 155/87 H 10/01/20 22:12 36.8 C 89 18 149/81 H 10/01/20 21:57 94 H 18 146/77 H 10/01/20 21:41 102 H 18 155/79 H 10/01/20 21:26 133 H 207/96 H 10/01/20 21:20 100 H 162/93 H 10/01/20 21:19 111 H 181/105 H 10/01/20 20:30 36.6 C 18 10/01/20 20:29 96 H 139/95 Lab Results 09/30/20 09/30/20 09/30/20 Range/Units 10:18 10:57 Unknown WBC 8.51 (4.8-10.8) K/uL RBC 4.26 (4.2-5.4) M/uL Hgb 12.8 (12.0-16.0) g/dL Hct 37.2 (37-47) % MCV 87.3 (80-100) fL MCH 30.0 (25-34) pg MCHC 34.4 (32-36) g/dL RDW Std Deviation 42.5 (36.4-46.3) fL RDW Coeff of Karo 13.5 (11.5-14.5) % Plt Count 329 (130-400) K/uL MPV 9.2 (7.4-10.4) fL COVID-19 Eval Order Covid19 at [facility] SARS-CoV-2 (PCR) SARS-CoV-2, RNA, NAAT NEGATIVE (NEGATIVE) 09/30/20 10/02/20 Range/Units Unknown 05:58 WBC 12.79 H (4.8-10.8) K/uL RBC 3.98 L (4.2-5.4) M/uL Hgb 11.5 L (12.0-16.0) g/dL Hct 34.5 L (37-47) % MCV 86.7 (80-100) fL MCH 28.9 (25-34) pg MCHC 33.3 (32-36) g/dL RDW Std Deviation 42.4 (36.4-46.3) fL RDW Coeff of Karo 13.3 (11.5-14.5) % Plt Count 330 (130-400) K/uL MPV 9.9 (7.4-10.4) fL COVID-19 Eval Order SARS-CoV-2 (PCR) Cancelled SARS-CoV-2, RNA, NAAT (NEGATIVE) PE: General: Alert, orientedx3, NAD Abd: soft, NT, fundus firm, below Umbilicus Perineum intact, Lochia rubra minimal Ext; NT, no edema AP: 34 yo s/p , ppd# 1 VSS Afebrile doing well Continue routine care All questions were answered D/C home tomorrow Results & Data ([facility]) Vital Signs (Past 12 Hours) Vital Signs Temp Pulse Pulse Resp BP BP Pulse Ox 10/02/20 05:05 37.0 C 86 16 109/73 98 07/22/21 00:20 36.6 C 107 H 18 111/75 97 10/01/20 23:57 105 H 128/67 10/01/20 23:42 96 H 18 127/62 10/01/20 23:27 99 H 122/62 10/01/20 23:12 104 H 20 142/73 H 10/01/20 22:57 95 H 135/68 10/01/20 22:42 91 H 18 151/80 H 10/01/20 22:27 92 H 155/87 H 10/01/20 22:12 36.8 C 89 18 149/81 H 10/01/20 21:57 94 H 18 146/77 H 10/01/20 21:41 102 H 18 155/79 H 10/01/20 21:26 133 H 207/96 H 10/01/20 21:20 100 H 162/93 H 10/01/20 21:19 111 H 181/105 H 10/01/20 20:30 36.6 C 18 10/01/20 20:29 96 H 139/95
[2020-10-02] MEDS: FERROUS SULFATE 325 MG TAB PO SCH (09:03)
[2020-10-02] MEDS: DOCUSATE SODIUM 100 MG CAP PO SCH ×2 (09:03→20:45)
[2020-10-02] MEDS: PRENATAL VITAMIN 1 TAB PO SCH (09:03)
[2020-10-02] MEDS ORDERED: bisacodyL 5 MG TABEC PO SCH (20:00)
[2020-10-03] MEDS: IBUPROFEN 600 MG TAB PO PRN ×2 (04:00→07:38)
[2020-10-03] MEDS: LEVOTHYROXINE SODIUM 137 MCG TABLET PO SCH ×3 (05:29→09:16)
[2020-10-03] MEDS: DOCUSATE SODIUM 100 MG CAP PO SCH (07:38)
[2020-10-03] MEDS: FERROUS SULFATE 325 MG TAB PO SCH (07:38)
[2020-10-03] MEDS: PRENATAL VITAMIN 1 TAB PO SCH (07:38)
[2020-10-03 08:23] LABS: Hematocrit (blood only) 36.5 % (37-47); Hemoglobin 11.8 g/dL (12.0-16.0)
--- NOTE | 2020-10-03 10:59 | Obstetrical Progress Note ---
Date of Service October 03, 2020 Physical Exam Constitutional WD/WN, vitals as above comfortable abdomen soft and non-tender fundus firm no edema noted Results & Data ([facility]) Vital Signs (Past 12 Hours) Vital Signs Temp Pulse Resp BP Pulse Ox 10/03/20 07:20 36.7 C 80 20 126/84 96 10/02/20 23:15 36.4 C L 88 18 116/78 Laboratory Results 09/30/20 09/30/20 09/30/20 10:18 10:57 Unknown WBC 8.51 RBC 4.26 Hgb 12.8 Hct 37.2 MCV 87.3 MCH 30.0 MCHC 34.4 RDW Std Deviation 42.5 RDW Coeff of Karo 13.5 Plt Count 329 MPV 9.2 COVID-19 Eval Order Covid19 at [facility] SARS-CoV-2 (PCR) SARS-CoV-2, RNA, NAAT NEGATIVE Blood Type Antibody Screen Screen 09/30/20 10/02/20 10/02/20 Unknown 05:54 05:58 WBC 12.79 H RBC 3.98 L Hgb 11.5 L Hct 34.5 L MCV 86.7 MCH 28.9 MCHC 33.3 RDW Std Deviation 42.4 RDW Coeff of Karo 13.3 Plt Count 330 MPV 9.9 COVID-19 Eval Order SARS-CoV-2 (PCR) Cancelled SARS-CoV-2, RNA, NAAT Blood Type Cancelled Antibody Screen Cancelled Screen Cancelled 10/03/20 08:14 WBC RBC Hgb 11.8 L Hct 36.5 L MCV MCH MCHC RDW Std Deviation RDW Coeff of Karo Plt Count MPV COVID-19 Eval Order SARS-CoV-2 (PCR) SARS-CoV-2, RNA, NAAT Blood Type Antibody Screen Screen
--- NOTE | 2020-10-28 14:12 | Coding Query ---
CODING QUERY To promote full compliance with coding requirements relating to patient care, provider participation is requested in all cases of epic beacon analyst uncertainty. Please assist us with the question(s) below: Coding Question(s): Please clarify the reason for induction of labor. gestational hypertension histoty of shoulder dystocia gestational diabetes Physician's Response(s): Thank you Gina Matthews Principal Diagnosis: "that condition established after study, to be chiefly responsible for occasioning the admission of the patient to the hospital for care." Co-Existing Principal Diagnosis: "when two or more diagnoses equally meet the criteria for principal diagnosis as determined by the circumstances of admission, diagnostic work up, and/or therapy provided, and the Alphabetic Index, Tabular List, or another coding guideline does not provide sequencing direction, any one of the diagnoses may be sequenced first." "When the physician has documented what appears to be a current diagnosis in the body of the record, but has not included the diagnosis in the final diagnostic statement, the physician should be asked whether the diagnosis should be added." (Source [facility]oding [facility] 2 QTR90. p3-4) NICOLAS
== END 2020-10-03 12:15 | disposition home or self-care (01) | DRG 807 ==
LOC: 4S1 07:25 → 4S2 10-02 00:15